=== PATIENT | female | born 1955 | race Hispanic/Latino ===

== ENCOUNTER 2021-03-14 08:46 | Inpatient (IN) | payer OTHER, MEDICARE ==
[2021-03-09 12:04] LABS: BASOPHILS % (AUTO) 0.5 % (0.0-5.0); EOSINOPHILS % (AUTO) 1.3 % (0.0-8.0); HEMATOCRIT 42.4 % (36-48); LYMPHOCYTES % (AUTO) 29.4 % (21.0-51.0); MEAN CORPUSCULAR HEMOGLOBIN 26.9 pg (27.0-33.0); MEAN CORPUSCULAR HGB CONC 31.1 g/dL (32.0-36.0); MEAN CORPUSCULAR VOLUME 86.5 fL (79-99); MONOCYTES % (AUTO) 6.5 % (3.0-13.0); NEUTROPHILS % (AUTO) 61.8 % (40.0-77.0); PLATELET COUNT (AUTO) 437 K/uL (130-400); RED CELL DISTRIBUTION WIDTH 13.2 % (11.0-15.5); WHITE BLOOD COUNT (AUTO) 10.3 K/uL (4.8-10.8)
[2021-03-09 12:15] LABS: INR 1.01 (0.85-1.15)
[2021-03-09 12:17] LABS: PARTIAL THROMBOPLASTIN TIME 27.9 SEC (26.3-35.5)
[2021-03-13 13:27] VITALS: BP 141/71
[~2021-03-14] VITALS: Ht 157.5 cm; Wt 53.8 kg
[2021-03-14] VITALS (27 sets, daily range): BP systolic 91–167; BP diastolic 43–82
[~2021-03-14 08:46] MED LIST: 0.9%NACL 1000ML 1,000 ML IV SCH; FLUT1BLS3 IH; LORA10TA7 PO; MECL-160 PO; METO5TAB2 PO; MIRA50TA PO; OMEP40CA21 PO; ZOLP10TA2 PO
[2021-03-14] MEDS ORDERED: LACTATED RINGERS 1000ML 1,000 ML IV ONE (09:16)
[2021-03-14] MEDS ORDERED: CEFAZOLIN SODIUM 1 GM VIAL ONE ×2 (09:17→13:05)
[2021-03-14] MEDS: CEFAZOLIN SODIUM 1 GM VIAL IVP ONE ×2 (10:02→14:00)
[2021-03-14] MEDS ORDERED: ESOM40CA54 PO (10:07)
[2021-03-14] MEDS ORDERED: albuterol sulfate IH (10:12)
[2021-03-14] MEDS ORDERED: DOXYCYCLINE OU (10:12)
[2021-03-14] MEDS ORDERED: vitamin d PO (10:12)
[2021-03-14] MEDS ORDERED: LACT10SO32 PO (10:12)
[2021-03-14] MEDS ORDERED: ALPR-410 PO (10:12)
[2021-03-14] MEDS ORDERED: anastrozole PO (10:12)
[2021-03-14] MEDS ORDERED: MOMETASONE NASAL (10:13)
[2021-03-14] MEDS ORDERED: PROPOFOL 10 MG/ML 20ML VIAL IV ONE (12:59)
[2021-03-14] MEDS ORDERED: LIDOCAINE PF 100MG/5ML (2%) SYRINGE 5ML ONE (12:59)
[2021-03-14] MEDS ORDERED: SUCCINYLCHOLINE CHLORIDE 20 MG/ML 10 ML VIAL ONE (12:59)
[2021-03-14] MEDS ORDERED: FENTANYL CITRATE PF 50 MCG/1 ML 2ML VIAL ONE ×3 (13:00→17:19)
[2021-03-14] MEDS ORDERED: ROCURONIUM 10MG/1ML SYR 10 MG/ML ML ONE (13:00)
[2021-03-14] MEDS ORDERED: GENTAMICIN SULFATE 80 MG/2 ML VIAL ONE (13:05)
[2021-03-14] MEDS ORDERED: METHYLENE BLUE 5 MG/ML AMP ONE (13:05)
[2021-03-14] MEDS ORDERED: MIDAZOLAM HCL 1 MG/ML 2ML VIAL ONE (13:19)
[2021-03-14] MEDS ORDERED: LABETALOL 20MG VIAL IV ONE (14:34)
[2021-03-14] MEDS ORDERED: BUPIVACAINE/EPI/PF 0.5% 30ML VIAL IJ ONE (15:47)
[2021-03-14] MEDS ORDERED: GLYCOPYRROLATE 1 MG/5 ML SYRINGE ONE (16:56)
[2021-03-14] MEDS ORDERED: NEOSTIGMINE 5MG/5ML SYR IV ONE (16:56)
[2021-03-14] MEDS ORDERED: ONDANSETRON 4MG INJ ONE ×3 (16:58→18:33)
[2021-03-14] MEDS ORDERED: MEPERIDINE-PF 25 MG/ML SYG ONE ×2 (17:36→17:51)
[2021-03-14] MEDS ORDERED: MEPERIDINE-PF 50 MG/ML SYG IVP SCH (20:00)
[2021-03-14] MEDS ORDERED: PROMETHAZINE HCL 25 MG/ML 1ML AMPULE IM PRN (21:00)
[2021-03-14] MEDS: TRAMADOL HCL 50 MG TABLET PO SCH (23:31)
[2021-03-15] MEDS ORDERED: DiphenhydrAMINE HCL 50 MG/ML VIAL IV PRN (02:30)
[2021-03-15] MEDS ORDERED: SCOPOLAMINE HYDROBROMIDE 1 EACH ADH..PATCH TD PRN (02:30)
[2021-03-15] MEDS ORDERED: METOCLOPRAMIDE 10 MG/2 ML VIAL IM PRN (02:30)
[2021-03-15 02:55] VITALS: BP 114/67
[2021-03-15] MEDS ORDERED: METOCLOPRAMIDE 10 MG/2 ML VIAL IV PRN (03:00)
[2021-03-15] MEDS: ONDANSETRON 4MG INJ IVP PRN (04:33)
[2021-03-15] MEDS: MEPERIDINE-PF 50 MG/ML SYG IVP PRN ×2 (04:40→09:45)
[2021-03-15 05:37] LABS: HEMATOCRIT 29.2 % (36-48); MEAN CORPUSCULAR HEMOGLOBIN 27.1 pg (27.0-33.0); MEAN CORPUSCULAR HGB CONC 31.8 g/dL (32.0-36.0); MEAN CORPUSCULAR VOLUME 85.1 fL (79-99); RED BLOOD CELL COUNT(AUTO) 3.43 MIL/uL (4.00-5.50); RED CELL DISTRIBUTION WIDTH 13.3 % (11.0-15.5); WHITE BLOOD COUNT (AUTO) 17.8 K/uL (4.8-10.8)
[2021-03-15 05:45] LABS: CREATININE 0.7 mg/dL (0.5-1.5); POTASSIUM 4.2 mmol/L (3.5-5.1)
[2021-03-15] MEDS: TRAMADOL HCL 50 MG TABLET PO SCH ×4 (06:35→23:50)
[2021-03-15] MEDS: LACTATED RINGERS 1000ML 1,000 ML IV SCH ×3 (06:36→17:00)
[2021-03-15 07:05] VITALS: BP 118/61
[2021-03-15 11:27] VITALS: BP 118/61
[2021-03-15] MEDS ORDERED: HYDROCORTISONE 1% CREAM 28G TP SCH (14:00)
[2021-03-15 15:53] VITALS: BP 112/61
[2021-03-15] MEDS: HYDROCORTISONE 1% CREAM 28G TP SCH ×2 (16:14→21:03)
[2021-03-15 19:37] VITALS: BP 104/57
[2021-03-15] MEDS ORDERED: DIPHENHYDRAMINE HCL 25 MG CAPSULE PO ONE (21:00)
[2021-03-15 23:50] VITALS: BP 111/49
[2021-03-16] VITALS (8 sets, daily range): BP systolic 101–118; BP diastolic 45–73
[2021-03-16] MEDS: LACTATED RINGERS 1000ML 1,000 ML IV SCH ×2 (02:08→12:27)
[2021-03-16] MEDS: MEPERIDINE-PF 50 MG/ML SYG IVP PRN (03:53)
[2021-03-16] MEDS: TRAMADOL HCL 50 MG TABLET PO SCH (06:00)
[2021-03-16] MEDS ORDERED: MECLIZINE HCL 25 MG TABLET PO PRN (09:30)
[2021-03-16] MEDS ORDERED: ALBUTEROL INHALER 90MCG/INH IH PRN (09:30)
[2021-03-16] MEDS ORDERED: FLUTICASONE PROPIONATE 50MCG/SPRAY 16 GM BOTTLE NS PRN (09:30)
[2021-03-16] MEDS ORDERED: LACTULOSE 20 GM/30 ML UDCUP PO PRN (09:30)
[2021-03-16] MEDS ORDERED: METOCLOPRAMIDE 5 MG TABLET PO SCH (09:30)
[2021-03-16] MEDS: PANTOPRAZOLE 40 MG TAB DR PO SCH (10:56)
[2021-03-16] MEDS: HYDROCORTISONE 1% CREAM 28G TP SCH ×2 (10:57→20:54)
[2021-03-16] MEDS ORDERED: TRAMADOL HCL 50 MG TABLET PO PRN (11:42)
[2021-03-16 12:36] LABS: MEAN CORPUSCULAR HEMOGLOBIN 27.8 pg (27.0-33.0); MEAN CORPUSCULAR HGB CONC 31.6 g/dL (32.0-36.0); MEAN CORPUSCULAR VOLUME 88.2 fL (79-99); RED BLOOD CELL COUNT(AUTO) 2.37 MIL/uL (4.00-5.50); RED CELL DISTRIBUTION WIDTH 13.5 % (11.0-15.5); WHITE BLOOD COUNT (AUTO) 18.3 K/uL (4.8-10.8)
[2021-03-16 12:37] LABS: HEMATOCRIT 20.9 % (36-48)
[2021-03-16 12:43] LABS: CREATININE 0.6 mg/dL (0.5-1.5); POTASSIUM 3.5 mmol/L (3.5-5.1)
[2021-03-16 14:12] LABS: MEAN CORPUSCULAR HEMOGLOBIN 27.7 pg (27.0-33.0); MEAN CORPUSCULAR HGB CONC 31.7 g/dL (32.0-36.0); MEAN CORPUSCULAR VOLUME 87.4 fL (79-99); RED BLOOD CELL COUNT(AUTO) 2.31 MIL/uL (4.00-5.50); RED CELL DISTRIBUTION WIDTH 13.4 % (11.0-15.5); WHITE BLOOD COUNT (AUTO) 18.1 K/uL (4.8-10.8)
[2021-03-16 14:30] LABS: HEMATOCRIT 20.2 % (36-48)
[2021-03-16] MEDS: ACETAMINOPHEN 325 MG TAB PO PRN (16:10)
[2021-03-16] MEDS: LORATADINE 10 MG TABLET PO SCH (16:11)
[2021-03-16] MEDS ORDERED: **HM**TRELEGY ELLIPTA IH SCH (21:00)
[2021-03-16] MEDS ORDERED: ZOLPIDEM TARTRATE 5 MG TAB PO SCH (21:00)
[2021-03-16] MEDS ORDERED: ALPRAZOLAM 1 MG TAB PO PRN (23:30)
[2021-03-17] MEDS: ONDANSETRON 4MG INJ IVP PRN (00:40)
[2021-03-17] MEDS ORDERED: 0.9%NACL 1000ML 1,000 ML IV SCH ×2 (03:00)
[2021-03-17 03:38] VITALS: BP 124/58
[2021-03-17 03:50] LABS: HEMATOCRIT 31.2 % (36-48); MEAN CORPUSCULAR HEMOGLOBIN 28.5 pg (27.0-33.0); MEAN CORPUSCULAR HGB CONC 33.3 g/dL (32.0-36.0); MEAN CORPUSCULAR VOLUME 85.5 fL (79-99); RED BLOOD CELL COUNT(AUTO) 3.65 MIL/uL (4.00-5.50); RED CELL DISTRIBUTION WIDTH 12.9 % (11.0-15.5); WHITE BLOOD COUNT (AUTO) 16.2 K/uL (4.8-10.8)
[2021-03-17 04:01] LABS: CREATININE 0.5 mg/dL (0.5-1.5); MAGNESIUM 1.7 mg/dL (1.80-2.40); POTASSIUM 3.2 mmol/L (3.5-5.1)
[2021-03-17] MEDS ORDERED: MAGNESIUM 2GM PREMIX 50ML 50 ML IV SCH (05:00)
[2021-03-17] MEDS ORDERED: LIDOCAINE HCL-MPF 1% 2ML VIAL IV PRN (05:00)
[2021-03-17] MEDS ORDERED: POTASSIUM CHLORIDE 20MEQ/100ML 100 ML IV PRN (05:00)
[2021-03-17] MEDS ORDERED: MAGNESIUM 2GM PREMIX 50ML 50 ML IV PRN (05:00)
[2021-03-17] MEDS ORDERED: POTASSIUM CHLORIDE 10% ELIXIR 20 MEQ/15 ML UDCUP PO PRN (05:00)
[2021-03-17] MEDS: KCL 20 MEQ ERTAB PO PRN ×3 (05:28→12:45)
[2021-03-17 06:11] LABS: APPEARANCE,URINE Clear (CLEAR); BILIRUBIN,URINE Negative (NEGATIVE); COLOR,URINE Yellow (YELLOW); GLUCOSE, URINE (UA) Negative (NEGATIVE); KETONES,URINE >=80 mg/dL (NEGATIVE); LEUKOCYTE ESTERASE ,URINE Large (NEGATIVE); NITRATE,URINE Negative (NEGATIVE); OCCULT BLOOD,URINE Trace (NEGATIVE); PH,URINE 6.5 (5.0-8.0); PROTEIN,URINE Negative (NEGATIVE); UROBILINOGEN,URINE 0.2 mg/dL (0.2-1.0)
[2021-03-17 06:19] LABS: BACTERIA,URINE None Seen /HPF (None Seen); RBC,URINE 0-1 /HPF (0-1); SQUAMOUS EPITHELIAL CELL,UR Rare /HPF (0-2)
[2021-03-17 08:15] VITALS: BP 118/67
[2021-03-17] MEDS: HOME MEDICATION 1 EACH IH SCH (08:37)
[2021-03-17] MEDS: PANTOPRAZOLE 40 MG TAB DR PO SCH (08:53)
[2021-03-17] MEDS: VIT D 1000 UNIT PO SCH (09:00)
[2021-03-17] MEDS ORDERED: FAMOTIDINE 20MG TAB PO SCH (09:00)
[2021-03-17] MEDS: HYDROCORTISONE 1% CREAM 28G TP SCH ×2 (09:03→23:37)
[2021-03-17 12:00] VITALS: BP 115/59
[2021-03-17] MEDS: LORATADINE 10 MG TABLET PO SCH (12:39)
[2021-03-17] MEDS: ACETAMINOPHEN 325 MG TAB PO PRN ×3 (12:40→23:31)
[2021-03-17 15:00] VITALS: BP 126/63
[2021-03-17] MEDS: CEFTRIAXONE 1G VIAL IVP SCH (20:57)
[2021-03-17 23:30] VITALS: BP 123/59
[2021-03-18 04:00] VITALS: BP 136/69
[2021-03-18 04:38] LABS: BASOPHILS % (AUTO) 0.5 % (0.0-5.0); EOSINOPHILS % (AUTO) 1.7 % (0.0-8.0); HEMATOCRIT 31.8 % (36-48); LYMPHOCYTES % (AUTO) 17.2 % (21.0-51.0); MEAN CORPUSCULAR HEMOGLOBIN 28.2 pg (27.0-33.0); MEAN CORPUSCULAR VOLUME 85.5 fL (79-99); MONOCYTES % (AUTO) 12.9 % (3.0-13.0); NEUTROPHILS % (AUTO) 66.6 % (40.0-77.0); PLATELET COUNT (AUTO) 198 K/uL (130-400); RED BLOOD CELL COUNT(AUTO) 3.72 MIL/uL (4.00-5.50); RED CELL DISTRIBUTION WIDTH 13.3 % (11.0-15.5); WHITE BLOOD COUNT (AUTO) 13.3 K/uL (4.8-10.8)
[2021-03-18 04:52] LABS: % IRON SATURATION 12.1 % (22-44)
[2021-03-18 05:22] LABS: MAGNESIUM 2.1 mg/dL (1.80-2.40); POTASSIUM 3.6 mmol/L (3.5-5.1)
[2021-03-18] MEDS: KCL 20 MEQ ERTAB PO PRN ×2 (05:32→07:15)
[2021-03-18 05:35] LABS: ALBUMIN 2.7 g/dL (3.5-5.0); BILIRUBIN,TOTAL 0.8 mg/dL (0.2-1.0); CREATININE 0.5 mg/dL (0.5-1.5); TOTAL PROTEIN, SERUM 6.2 g/dL (6.0-8.3)
[2021-03-18] MEDS: HOME MEDICATION 1 EACH IH SCH (06:46)
[2021-03-18 07:30] VITALS: BP 136/69
[2021-03-18] MEDS: PANTOPRAZOLE 40 MG TAB DR PO SCH (08:54)
[2021-03-18] MEDS: CEFTRIAXONE 1G VIAL IVP SCH (08:54)
[2021-03-18] MEDS: ACETAMINOPHEN 325 MG TAB PO PRN (08:56)
[2021-03-18] MEDS: VIT D 1000 UNIT PO SCH (09:00)
[2021-03-18] MEDS: HYDROCORTISONE 1% CREAM 28G TP SCH (09:59)
[2021-03-18 12:00] VITALS: BP 130/82
[2021-03-18] MEDS ORDERED: ACET-2743 PO (13:39)
== END 2021-03-18 15:45 | disposition home health service (06) | DRG 582 ==
LOC: DAH 08:46 → SUH 08:46 → OBSVTOIN 08:47 → WSH 08:47
PROVIDERS: ADMIT Student in an Organized Health Care Education/Training Program; ATTEND Student in an Organized Health Care Education/Training Program
PROC: 0HBT0ZZ Excision of Right Breast, Open Approach (ICD-10-PCS; principal; 2021-03-14 14:09)
PROC: 30233N1 Transfusion of Nonautologous Red Blood Cells into Peripheral Vein, Percutaneous Approach (ICD-10-PCS; 2021-03-16)
DX: C50.611 Malignant neoplasm of axillary tail of right female breast (principal); D62 Acute posthemorrhagic anemia; Z20.822 Contact with and (suspected) exposure to COVID-19; E87.6 Hypokalemia; E83.42 Hypomagnesemia; Z88.5 Allergy status to narcotic agent; Z83.3 Family history of diabetes mellitus; Z82.0 Family history of epilepsy and other diseases of the nervous system; Z82.61 Family history of arthritis; Z84.89 Family history of other specified conditions; Z80.42 Family history of malignant neoplasm of prostate; Z80.0 Family history of malignant neoplasm of digestive organs
CPT/HCPCS: 36415; 36430; 70450; 71045; 80048; 80053; 81001; 82140; 82607; 82728; 82746; 83540; 83550; 83735; 84145; 84484; 85025; 85027; 85610; 85730; 86850; 86900; 86901; 86923; 87088; 87635; 93005; A4344; C9803; G0378; J0330; J0690; J0696; J1580; J2001; J2175; J2250; J2405; J2550; J2704; J2710; J2765; J3010; J3475; J3490; J7030; J7120; P9016; Q0163; Q9968